=== PATIENT | male | born 1940 | race Caucasian/White ===

== ENCOUNTER 2019-06-11 05:30 | Observation (INO) ==
[2019-06-11] MEDS ORDERED: Ipratropium/Albuterol Neb 3 ML IH ONE (06:16)
[2019-06-11 06:18] LABS: Basophils # 0.1 K/mcL (0.0-0.2); Basophils % 0.6 %; Eosinophils # 0.6 K/mcL (0.0-0.6); Eosinophils % 5.2 %; Hematocrit 43.6 % (37.5-50.1); Hemoglobin 14.3 g/dL (12.9-16.9); Immature Granulocytes % 0.4 % (0-4); Lymphocytes # 1.7 K/mcL (0.6-4.6); Lymphocytes % 15.2 %; Mean Corpuscular HGB Conc 32.8 g/dL (31.6-35.5); Mean Corpuscular Hemoglobin 31.9 pg (28.0-33.3); Mean Corpuscular Volume 97.3 fL (83.0-100.0); Mean Platelet Volume 9.8 fL (9.4-12.4); Monocytes # 0.9 K/mcL (0.0-1.3); Monocytes % 8.5 %; Neutrophils # 7.7 K/mcL (1.6-8.9); Platelet Count 237 K/mcL (140-400); Red Blood Count 4.48 M/mcL (4.19-5.50); Red Cell Distribution Width 14.7 % (11.5-14.5); Segmented Neutrophils % 70.1 %; White Blood Count 11.1 K/mcL (4.3-11.1)
--- NOTE | 2019-06-11 06:18 | Emergency Department Note ---
Disposition Clinical Impression: Hypoxia, Elevated brain natriuretic peptide (BNP) level Community acquired pneumonia Qualifiers: Laterality: right Lung location: upper lobe of lung Qualified Code(s): J18.1 - Lobar pneumonia, unspecified organism Disposition: Admitted As Inpatient Condition: Good Time of Disposition: 07:13 SOB HPI - General Chief Complaint: ED Shortness of Breath/Dyspnea Stated Complaint: "think I have pneumonia" Time Seen by Provider: 06/11/19 06:03 Source: patient Limitations: no limitations - History of Present Illness 78-year-old male with history of COPD presents with cough and shortness breath for 3 weeks. Pt stated he coughed some yellowish mucus. Patient stated he even could not tolerate walking a few minutes . Patient tried Mucinex without improvement. No chills and a fever. Patient is not on home oxygen. Patient quit smoking 14 years ago. no recent hospitalization. Pt Subjective Complaint: shortness of breath Onset (ago): week(s) (3) - Related Data Home Medications Medication Instructions Recorded Confirmed Amlodipine Besylate/Benazepril 1 each PO DAILY 03/16/16 06/11/19 [Lotrel 10-20 mg Capsule] Lisinopril [Zestril] 40 mg PO DAILY 03/16/16 06/11/19 raNITIdine HCl [Zantac] 150 mg PO BID 03/16/16 06/11/19 Allopurinol [Zyloprim 100 MG] 100 mg PO DAILY 06/11/19 06/11/19 Carvedilol [Coreg] 25 mg PO BID 06/11/19 06/11/19 Allergies Allergy/AdvReac Type Severity Reaction Status Date / Time hydrocodone Allergy Hallucinati Verified 06/11/19 05:40 ng Constitutional: Denies: fever Eyes: Denies: eye pain ENT ED: Denies: ear pain Cardiovascular: Denies: chest pain Respiratory: Reports: cough, dyspnea, sputum production Gastrointestinal: Denies: abdominal pain Genitourinary: Denies: urgency Musculoskeletal: Denies: back pain Integumentary: Denies: rash Neurological: Denies: headache Psychiatric: Denies: anxiety Endocrine: Denies: fatigue Hematological/Lymphatic: Denies: easy bleeding Allergic/Immunologic: Denies: facial swelling Past Medical History - Past Medical History Medical history: Reports: GERD, hyperlipidemia, hypertension Psychiatric history: Reports: no psych history - Social History Smoking Status: Former smoker Smokeless Tobacco Status: No Alcohol use: Reports: none Drug use: Reports: none Physical Exam - General Limitations: no limitations General appearance: alert - Head Head exam: atraumatic - Eye Eye exam: Present: normal appearance - ENT ENT exam: normal exam - Neck Neck exam: Present: normal inspection - Chest Chest inspection: Present: normal inspection - Respiratory Respiratory exam: Present: wheezes (right lower lobe wheezing). Absent: respiratory distress - Cardiovascular Cardiovascular exam: Present: regular rate - Abdominal Exam Abdominal exam: Present: soft, Non-Tender - Extremities Exam Extremities exam: Present: normal inspection, full ROM. Absent: tenderness - Back Exam Back exam: Present: normal inspection, full ROM. Absent: tenderness - Neurological Exam Neurological exam: Present: alert, oriented X3 - Psychiatric Psychiatric exam: Present: normal affect - Skin Skin exam: Present: warm, intact Course Vital Signs Temperature 98.6 F 06/11/19 05:34 Pulse Rate 66 06/11/19 05:34 Respiratory Rate 24 06/11/19 05:34 Blood Pressure 165/102 06/11/19 05:34 O2 Sat by Pulse Oximetry 87 06/11/19 05:34 Temperature 98.6 F 06/11/19 05:34 Pulse Rate 66 06/11/19 09:14 Respiratory Rate 23 06/11/19 09:14 Blood Pressure 140/67 06/11/19 09:14 O2 Sat by Pulse Oximetry 92 06/11/19 09:14 Oxygen Delivery Oxygen Delivery Nasal Cannula Shortness of Breath/Dyspnea - [facility] Narrative Medical decision making narrative: 78-year-old male with a history of COPD presents with productive cough and shortness breath. He weeks. At no improvement with Mucinex. No chills and a fever. Patient's O2 sat was 87 in room air. Patient is not on home oxygen. No recently hospitalized. Physical exam afebrile, O2 sat 92 with 2 L oxygen, no breast distress, wheezing in right lower lobe, bilateral ankles mild edema. Chest x-ray indicated right upper lobe pneumonia. Negative troponin. BnP >1400. Impression community acquired pneumonia and hypoxia and elevated BNP. Patient will be admitted to hospital. Blood culture collected, antibiotics started in ER. Dr. Mario has seen the patient and agrees the above plan. Pt is given one dose of Lasix. Spoke with hospitalist Dr. Akins. Pt is accepted. - Lab Data Lab results reviewed: Yes I reviewed the patient's lab results. Result diagrams: 06/11/19 05:55 06/11/19 05:55 Lab Results 06/11/19 06/11/19 06/11/19 Range/Units 05:55 05:55 05:55 WBC 11.1 (4.3-11.1) K/mcL RBC 4.48 (4.19-5.50) M/mcL Hgb 14.3 (12.9-16.9) g/dL Hct 43.6 (37.5-50.1) % MCV 97.3 (83.0-100.0) fL MCH 31.9 (28.0-33.3) pg MCHC 32.8 (31.6-35.5) g/dL RDW 14.7 H (11.5-14.5) % Plt Count 237 (140-400) K/mcL MPV 9.8 (9.4-12.4) fL Immature Gran % 0.4 (0-4) % Seg Neutrophils % 70.1 % Lymphocytes % 15.2 % Monocytes % 8.5 % Eosinophils % 5.2 % Basophils % 0.6 % Neutrophils # 7.7 (1.6-8.9) K/mcL Lymphocytes # 1.7 (0.6-4.6) K/mcL Monocytes # 0.9 (0.0-1.3) K/mcL Eosinophils # 0.6 (0.0-0.6) K/mcL Basophils # 0.1 (0.0-0.2) K/mcL Sodium 140 (136-145) mEq/L Potassium 3.7 (3.5-5.1) mEq/L Chloride 105 (98-107) mEq/L Carbon Dioxide 24 (23-29) mEq/L BUN 16 (8-23) mg/dL Creatinine 1.20 (0.70-1.30) mg/dL Est GFR ( Amer) > 60 (> 60) Est GFR (Non-Af Amer) 59 L (> 60) BUN/Creatinine Ratio 13 (6-26) Glucose 129 H (70-105) mg/dL Calculated Osmolality 293 (280-300) Lactic Acid (0.5-2.2) mmol/L Calcium 9.2 (8.6-10.3) mg/dL Total Bilirubin 0.9 (0.3-1.0) mg/dL AST 13 (13-39) Units/L ALT 14 (7-52) Units/L Alkaline Phosphatase 61 (34-104) Units/L Troponin I 0.03 (< 0.04) ng/mL B-Natriuretic Peptide 1450 H (Less than 100) pg/mL Serum Total Protein 6.9 (6.4-8.9) g/dL Albumin 4.3 (3.5-5.7) g/dL Globulin 2.6 (2.4-3.5) g/dL Albumin/Globulin Ratio 1.7 (1.1-2.2) 06/11/19 Range/Units 06:58 WBC (4.3-11.1) K/mcL RBC (4.19-5.50) M/mcL Hgb (12.9-16.9) g/dL Hct (37.5-50.1) % MCV (83.0-100.0) fL MCH (28.0-33.3) pg MCHC (31.6-35.5) g/dL RDW (11.5-14.5) % Plt Count (140-400) K/mcL MPV (9.4-12.4) fL Immature Gran % (0-4) % Seg Neutrophils % % Lymphocytes % % Monocytes % % Eosinophils % % Basophils % % Neutrophils # (1.6-8.9) K/mcL Lymphocytes # (0.6-4.6) K/mcL Monocytes # (0.0-1.3) K/mcL Eosinophils # (0.0-0.6) K/mcL Basophils # (0.0-0.2) K/mcL Sodium (136-145) mEq/L Potassium (3.5-5.1) mEq/L Chloride (98-107) mEq/L Carbon Dioxide (23-29) mEq/L BUN (8-23) mg/dL Creatinine (0.70-1.30) mg/dL Est GFR ( Amer) (> 60) Est GFR (Non-Af Amer) (> 60) BUN/Creatinine Ratio (6-26) Glucose (70-105) mg/dL Calculated Osmolality (280-300) Lactic Acid 1.0 (0.5-2.2) mmol/L Calcium (8.6-10.3) mg/dL Total Bilirubin (0.3-1.0) mg/dL AST (13-39) Units/L ALT (7-52) Units/L Alkaline Phosphatase (34-104) Units/L Troponin I (< 0.04) ng/mL B-Natriuretic Peptide (Less than 100) pg/mL Serum Total Protein (6.4-8.9) g/dL Albumin (3.5-5.7) g/dL Globulin (2.4-3.5) g/dL Albumin/Globulin Ratio (1.1-2.2) - Radiology Data Radiology results reviewed: Yes I reviewed the patient's radiology results. COMPARISON: Portable chest, 03/06/2012 HISTORY: ORDERING SYSTEM PROVIDED HISTORY: chest pain Dyspnea and shortness of breath for the past 2-3 weeks. Acute symptoms, initial evaluation. Also with chest pain. FINDINGS: The heart appears enlarged. Atherosclerotic aortic calcifications noted. Bibasilar atelectasis identified. There is hazy airspace disease in the mid right lung raising concern for pneumonia. There may be a small right pleural effusion. No evidence of pneumothorax on either side. There appears to be cervical fusion hardware at the upper edge of the field of view. XR/XR chest 2V IMPRESSION: Findings concerning for right upper lobe pneumonia. Follow-up chest radiographs recommended to ensure resolution. D/ / Juwan Aranda MD / Juwan Aranda MD Interpreting Provider: Juwan Aranda MD
[2019-06-11 06:40] LABS: Alanine Aminotransferase 14 Units/L (7-52); Albumin 4.3 g/dL (3.5-5.7); Albumin/Globulin Ratio 1.7 (1.1-2.2); Alkaline Phosphatase 61 Units/L (34-104); Aspartate Amino Transferase 13 Units/L (13-39); BUN/Creatinine Ratio 13 (6-26); Bilirubin,Total 0.9 mg/dL (0.3-1.0); Blood Urea Nitrogen 16 mg/dL (8-23); Calcium 9.2 mg/dL (8.6-10.3); Carbon Dioxide 24 mEq/L (23-29); Chloride 105 mEq/L (98-107); Globulin 2.6 g/dL (2.4-3.5); Glucose 129 mg/dL (70-105); Osmolality,Calculated 293 (280-300); Potassium 3.7 mEq/L (3.5-5.1); Sodium 140 mEq/L (136-145); Total Protein 6.9 g/dL (6.4-8.9); Troponin I 0.03 ng/mL (< 0.04); eGFR For African Americans > 60 (> 60); eGFR For Non-African Americans 59 (> 60)
--- NOTE | 2019-06-11 06:48 | Electrocardiograph Report ---
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
[2019-06-11] MEDS ORDERED: Azithromycin 500 MG in D5% in Water 250 ML IVPB ONE (07:03)
[2019-06-11] MEDS ORDERED: cefTRIAXone 1,000 MG in 0.9 % Sodium Chloride Mini Bag 100 ML IVPB ONE (07:03)
--- NOTE | 2019-06-11 07:22 | Emergency Department Note ---
Disposition Clinical Impression: Hypoxia, Elevated brain natriuretic peptide (BNP) level Community acquired pneumonia Qualifiers: Laterality: right Lung location: upper lobe of lung Qualified Code(s): J18.1 - Lobar pneumonia, unspecified organism Disposition: Admitted As Inpatient Condition: Good Time of Disposition: 09:00 General Adult HPI - General Chief complaint: ED Shortness of Breath/Dyspnea Stated complaint: "think I have pneumonia" Time Seen by Provider: 06/11/19 06:03 Source: patient Limitations: no limitations Nursing Notes Reviewed: Yes Vital Signs Reviewed: Yes - History of Present Illness Pain Scale: 0 - Related Data Home Medications Medication Instructions Recorded Confirmed Amlodipine Besylate/Benazepril 1 each PO DAILY 03/16/16 06/11/19 [Lotrel 10-20 mg Capsule] Lisinopril [Zestril] 40 mg PO DAILY 03/16/16 06/11/19 raNITIdine HCl [Zantac] 150 mg PO BID 03/16/16 06/11/19 Allopurinol [Zyloprim 100 MG] 100 mg PO DAILY 06/11/19 06/11/19 Carvedilol [Coreg] 25 mg PO BID 06/11/19 06/11/19 Allergies Allergy/AdvReac Type Severity Reaction Status Date / Time hydrocodone Allergy Hallucinati Verified 06/11/19 05:40 ng Constitutional: Denies: fever Eyes: Denies: eye pain ENT ED: Denies: ear pain Cardiovascular: Denies: chest pain Respiratory: Reports: cough, dyspnea, sputum production Gastrointestinal: Denies: abdominal pain Genitourinary: Denies: urgency Musculoskeletal: Denies: back pain Integumentary: Denies: rash Neurological: Denies: headache Psychiatric: Denies: anxiety Endocrine: Denies: fatigue Hematological/Lymphatic: Denies: easy bleeding Allergic/Immunologic: Denies: facial swelling Past Medical History - Past Medical History Medical history: Reports: GERD, hyperlipidemia, hypertension Psychiatric history: Reports: no psych history - Social History Smoking Status: Former smoker Smokeless Tobacco Status: No Alcohol use: Reports: none Drug use: Reports: none Physical Exam - General Limitations: no limitations General appearance: alert Course Vital Signs Temperature 98.6 F 06/11/19 05:34 Pulse Rate 66 06/11/19 05:34 Respiratory Rate 24 06/11/19 05:34 Blood Pressure 165/102 06/11/19 05:34 O2 Sat by Pulse Oximetry 87 06/11/19 05:34 Temperature 98.6 F 06/11/19 05:34 Pulse Rate 66 06/11/19 09:14 Respiratory Rate 23 06/11/19 09:14 Blood Pressure 140/67 06/11/19 09:14 O2 Sat by Pulse Oximetry 92 06/11/19 09:14 Oxygen Delivery Oxygen Delivery Nasal Cannula Medical Decision Making - MDM Narrative Medical decision making narrative: Chest X-Ray 06/11/19 06:03 IMPRESSION: Findings concerning for right upper lobe pneumonia. Follow-up chest radiographs recommended to ensure resolution. D/ / Juwan Aranda MD / Juwan Aranda MD Interpreting Provider: Juwan Aranda MD - Lab Data Result diagrams: 06/11/19 05:55 06/11/19 05:55 Lab Results 06/11/19 06/11/19 06/11/19 Range/Units 05:55 05:55 05:55 WBC 11.1 (4.3-11.1) K/mcL RBC 4.48 (4.19-5.50) M/mcL Hgb 14.3 (12.9-16.9) g/dL Hct 43.6 (37.5-50.1) % MCV 97.3 (83.0-100.0) fL MCH 31.9 (28.0-33.3) pg MCHC 32.8 (31.6-35.5) g/dL RDW 14.7 H (11.5-14.5) % Plt Count 237 (140-400) K/mcL MPV 9.8 (9.4-12.4) fL Immature Gran % 0.4 (0-4) % Seg Neutrophils % 70.1 % Lymphocytes % 15.2 % Monocytes % 8.5 % Eosinophils % 5.2 % Basophils % 0.6 % Neutrophils # 7.7 (1.6-8.9) K/mcL Lymphocytes # 1.7 (0.6-4.6) K/mcL Monocytes # 0.9 (0.0-1.3) K/mcL Eosinophils # 0.6 (0.0-0.6) K/mcL Basophils # 0.1 (0.0-0.2) K/mcL Sodium 140 (136-145) mEq/L Potassium 3.7 (3.5-5.1) mEq/L Chloride 105 (98-107) mEq/L Carbon Dioxide 24 (23-29) mEq/L BUN 16 (8-23) mg/dL Creatinine 1.20 (0.70-1.30) mg/dL Est GFR ( Amer) > 60 (> 60) Est GFR (Non-Af Amer) 59 L (> 60) BUN/Creatinine Ratio 13 (6-26) Glucose 129 H (70-105) mg/dL Calculated Osmolality 293 (280-300) Lactic Acid (0.5-2.2) mmol/L Calcium 9.2 (8.6-10.3) mg/dL Total Bilirubin 0.9 (0.3-1.0) mg/dL AST 13 (13-39) Units/L ALT 14 (7-52) Units/L Alkaline Phosphatase 61 (34-104) Units/L Troponin I 0.03 (< 0.04) ng/mL B-Natriuretic Peptide 1450 H (Less than 100) pg/mL Serum Total Protein 6.9 (6.4-8.9) g/dL Albumin 4.3 (3.5-5.7) g/dL Globulin 2.6 (2.4-3.5) g/dL Albumin/Globulin Ratio 1.7 (1.1-2.2) 06/11/19 Range/Units 06:58 WBC (4.3-11.1) K/mcL RBC (4.19-5.50) M/mcL Hgb (12.9-16.9) g/dL Hct (37.5-50.1) % MCV (83.0-100.0) fL MCH (28.0-33.3) pg MCHC (31.6-35.5) g/dL RDW (11.5-14.5) % Plt Count (140-400) K/mcL MPV (9.4-12.4) fL Immature Gran % (0-4) % Seg Neutrophils % % Lymphocytes % % Monocytes % % Eosinophils % % Basophils % % Neutrophils # (1.6-8.9) K/mcL Lymphocytes # (0.6-4.6) K/mcL Monocytes # (0.0-1.3) K/mcL Eosinophils # (0.0-0.6) K/mcL Basophils # (0.0-0.2) K/mcL Sodium (136-145) mEq/L Potassium (3.5-5.1) mEq/L Chloride (98-107) mEq/L Carbon Dioxide (23-29) mEq/L BUN (8-23) mg/dL Creatinine (0.70-1.30) mg/dL Est GFR ( Amer) (> 60) Est GFR (Non-Af Amer) (> 60) BUN/Creatinine Ratio (6-26) Glucose (70-105) mg/dL Calculated Osmolality (280-300) Lactic Acid 1.0 (0.5-2.2) mmol/L Calcium (8.6-10.3) mg/dL Total Bilirubin (0.3-1.0) mg/dL AST (13-39) Units/L ALT (7-52) Units/L Alkaline Phosphatase (34-104) Units/L Troponin I (< 0.04) ng/mL B-Natriuretic Peptide (Less than 100) pg/mL Serum Total Protein (6.4-8.9) g/dL Albumin (3.5-5.7) g/dL Globulin (2.4-3.5) g/dL Albumin/Globulin Ratio (1.1-2.2) Attestation Statement - Attestation Attestation: This documentation is done with the assistance of Dragon dictation. Despite efforts made to ensure accuracy, there may be inaccuracies in perinatal technician or spelling and typographical errors. I have personally performed a face to face evaluation on this patient. I have reviewed and agree with the care plan. History and Exam by me shows: Patient seen and evaluated this morning by the physician's assistant sales manager, agree with her evaluation and management plan, patient comes in today with a history of COPD quit smoking some time ago having cough for 3 weeks does have pneumonia here today we will start on antibiotics and then admit. He is in agreement with plan.
[2019-06-11] MEDS ORDERED: Furosemide 20 MG/2 ML VIAL IVP ONE (08:28)
--- NOTE | 2019-06-11 10:42 | Internal Med History&Physical ---
Date of Encounter: 06/11/19 Time of Encounter: 10:40 Internal Medicine - H&P: HPI History of present illness: Mr. Ratliff is a 78 year old male with history of COPD, aortic aneurysm status post repair, presented to ED for three week history of worsening shortness of breath. It is associated with coughing with yellowish sputum. He denies chest pain, fevers/chills, n/v, diarrhea constipation. He is having lower extremity edema worse than usual. He cannot comment if he has orthopnea because he never lays flat because of chronic neck problems. In the ED he had a chest x-ray showing bibasilar atelectasis and right upper lobe pneumonia. He was afebrile with normal white count. He had an initial troponin that was 0.03 and a BNP was 1,450. Past Med Surg Social Fam HX - Past Medical History Medical history: GERD, hyperlipidemia, hypertension Additional medical history: gout Psychiatric history: no psych history - Past Surgical History Additional surgical history: cervical surgery. thoracic back surgery. aortic aneursym repair. partial colectomy. colostomy/ileostomy-reversed. abd hernia repair - Social History Smoking Status: Former smoker Smokeless Tobacco Status: No Alcohol use: none Drug use: none - Family History Mother Living Status: Hx Family Cardiac Disorders: Yes (heart attach) Father Living Status: Hx Family Cardiac Disorders: Yes (CHF) Internal Medicine - H&P: Meds Amlodipine Besylate/Benazepril [Lotrel 10-20 mg Capsule] 1 each PO DAILY 03/16/16 [History] Lisinopril [Zestril] 40 mg PO DAILY 03/16/16 [History] raNITIdine HCl [Zantac] 150 mg PO BID 03/16/16 [History] Allopurinol [Zyloprim 100 MG] 100 mg PO DAILY 06/11/19 [History] Carvedilol [Coreg] 25 mg PO BID 06/11/19 [History] Allergy/AdvReac Type Severity Reaction Status Date / Time hydrocodone Allergy Hallucinati Verified 06/11/19 05:40 ng All Systems PM: A 10-system review of systems was performed and is negative for pertinent findings except as documented above in the HPI. - Constitutional Constitutional: no chills, no fever(s), no night sweats - EENT Eyes: no change in vision, no discharge, no pain, no photophobia Ears: no ear discharge, no ear pain, no tinnitus Nose, mouth and throat: no dysphagia, no nasal discharge, no neck pain, no sore throat - Cardiovascular Cardiovascular ROS IM: edema, no chest pain, no diaphoresis, no dyspnea, no lightheadedness, no palpitations, no syncope - Respiratory Respiratory: dyspnea on exertion, excessive phlegm production, no cough, no dyspnea, no wheezing - Gastrointestinal Gastrointestinal: no abdominal pain, no diarrhea, no hematemesis, no hematochezia, no melena, no nausea, no vomiting - Musculoskeletal Musculoskeletal ROS IM: no numbness, no tingling - Integumentary Integumentary IM: no rash, no unusual bruising - Neurological Neurological ROS: no confusion, no convulsions, no focal weakness, no numbness, no tingling, no tremor(s) - Hematologic/Lymphatic Hematologic/Lymphatic: no easy bruising - Constitutional Vitals: Temp Pulse Resp BP Pulse Ox 98.6 F 66 23 140/67 92 06/11/19 05:34 06/11/19 09:14 06/11/19 09:14 06/11/19 09:14 06/11/19 09:14 General appearance: Present: A&O X 3 Exam: . - Head Head exam: Present: atraumatic, normocephalic - Eye Eye exam: Present: PERRL, conjuntiva pink, sclera anicteric Pupils: Present: PERRL - Neck Neck exam general surgery: Present: supple, trachea midline. Absent: lymphadenopathy - Respiratory Respiratory exam: Present: decreased breath sounds, rales. Absent: accessory muscle use, rhonchi, wheezes - Cardiovascular Cardiovascular exam: Present: RRR, +S1, +S2. Absent: diastolic murmur, gallop, rubs, systolic murmur - GI/Abdominal GI/Abdominal exam: Present: normal bowel sounds, soft, no peritoneal signs. Absent: distended, tenderness - Extremities Exam Extremities exam: Present: pedal edema, warm, radial pulses palpable and symmetrical. Absent: calf tenderness, cyanotic - Neurological Exam Neurological exam: Present: CN II-XII intact, oriented X3, no focal deficits. Absent: pronater drift, facial droop, speech deficit - Skin Skin exam: Present: dry, intact Internal Med - H&P Results - Labs CBC & Chem 7: 06/11/19 05:55 06/11/19 05:55 Labs: Short CBC 06/11/19 Range/Units 05:55 WBC 11.1 (4.3-11.1) K/mcL Hgb 14.3 (12.9-16.9) g/dL Hct 43.6 (37.5-50.1) % Plt Count 237 (140-400) K/mcL Neutrophils # 7.7 (1.6-8.9) K/mcL BMP 06/11/19 05:55 Sodium 140 Potassium 3.7 Chloride 105 Carbon Dioxide 24 BUN 16 Creatinine 1.20 Glucose 129 H Calcium 9.2 Cardiac Enzymes 06/11/19 Range/Units 05:55 Troponin I 0.03 (< 0.04) ng/mL Liver Function 06/11/19 Range/Units 05:55 Total Bilirubin 0.9 (0.3-1.0) mg/dL AST 13 (13-39) Units/L ALT 14 (7-52) Units/L Alkaline Phosphatase 61 (34-104) Units/L Albumin 4.3 (3.5-5.7) g/dL - Impressions ITS Impressions Chest X-Ray 06/11/19 06:03 IMPRESSION: Findings concerning for right upper lobe pneumonia. Follow-up chest radiographs recommended to ensure resolution. D/ / Juwan Aranda MD / Juwan Aranda MD Interpreting Provider: Juwan Aranda MD - Assessment and Plan (1) Acute respiratory failure with hypoxia Current Visit: Yes Status: Acute Assessment and plan: Secondary to community acquired pneumonia. Patient also has mild fluid over load. Required 2L NC oxygen in ED. Currently weaned back down to RA. - Continue Rocephin/Azithro - Duo Nebs scheduled and prn - No indication for steroids - Wean O2 as tolerated. - 2D echocardiogram - I.S. - Re-evaluation if patient will require IV Lasix. (2) Community acquired pneumonia Current Visit: Yes Status: Acute Assessment and plan: Patient does not meet sepsis criteria. LA within normal limits VSS Continue Rocephin/Azithro Qualifiers: Laterality: right Lung location: upper lobe of lung Qualified Code(s): J18.1 - Lobar pneumonia, unspecified organism (3) Elevated brain natriuretic peptide (BNP) level Current Visit: Yes Status: Acute (4) Hypertension Current Visit: Yes Status: Acute Assessment and plan: Resume home medications Qualifiers: Hypertension type: essential hypertension Qualified Code(s): I10 - Essential (primary) hypertension (5) DVT prophylaxis Current Visit: Yes Status: Acute Assessment and plan: Heparin SQ - Time Spent With Patient Total time spent is greater than 50% in coordination of care (as documented) at patient's floor/unit and/or counseling patient:
[2019-06-11] MEDS ORDERED: Naloxone 0.4 MG/ML INJ IVP PRN (10:44)
[2019-06-11] MEDS ORDERED: Nitroglycerin 0.4 MG TAB.SUBL SL PRN (10:46)
[2019-06-11] MEDS: Ipratropium/Albuterol Neb 3 ML IH SCH ×4 (11:53→23:49)
[2019-06-11 13:48] LABS: Adenovirus Not Detected (Not Detect); Bordetella Pertussis Not Detected (Not Detect); Chlamydophila pneumoniae Not Detected (Not Detect); Coronavirus 229E Not Detected (Not Detect); Coronavirus HKU1 Not Detected (Not Detect); Coronavirus NL63 Not Detected (Not Detect); Coronavirus OC43 Not Detected (Not Detect); Human Metapneumovirus Not Detected (Not Detect); Human Rhinovirus/Enterovirus Not Detected (Not Detect); Influenza A Subtype 2009 H1 Not Detected (Not Detect); Influenza A Untypeable Not Detected (Not Detect); Influenza B Not Detected (Not Detect); Mycoplasma pneumoniae Not Detected (Not Detect); Parainfluenza Virus 1 Not Detected (Not Detect); Parainfluenza Virus 2 Not Detected (Not Detect); Parainfluenza Virus 3 Not Detected (Not Detect); Parainfluenza Virus 4 Not Detected (Not Detect); Respiratory Syncytial Virus Not Detected (Not Detect)
[2019-06-11] MEDS: Furosemide 40 MG/4 ML VIAL IVP SCH ×2 (15:51→20:57)
[2019-06-11] MEDS: *HR* Heparin 5,000 UNIT/ML VIAL SQ SCH (17:06)
[2019-06-11] MEDS: predniSONE 20 MG TABLET PO SCH (17:39)
[2019-06-11] MEDS: Famotidine 20 MG TABLET PO SCH (19:39)
[2019-06-12] MEDS: Ipratropium/Albuterol Neb 3 ML IH SCH ×3 (04:22→11:16)
[2019-06-12] MEDS: *HR* Heparin 5,000 UNIT/ML VIAL SQ SCH (04:56)
[2019-06-12 05:16] LABS: BUN/Creatinine Ratio 13 (6-26); Blood Urea Nitrogen 17 mg/dL (8-23); Calcium 9.3 mg/dL (8.6-10.3); Carbon Dioxide 27 mEq/L (23-29); Chloride 104 mEq/L (98-107); Glucose 145 mg/dL (70-105); Osmolality,Calculated 296 (280-300); Potassium 3.5 mEq/L (3.5-5.1); Sodium 141 mEq/L (136-145); eGFR For African Americans > 60 (> 60); eGFR For Non-African Americans 56 (> 60)
[2019-06-12] MEDS ORDERED: NON-FORMULARY MEDICATION 1 EACH EACH (Amlodipine Besylate/Benazepril [Lotrel 10-20 Mg Caps PO SCH (09:00)
[2019-06-12] MEDS ORDERED: Lisinopril 20 MG TABLET PO SCH ×2 (09:00)
[2019-06-12] MEDS ORDERED: cefTRIAXone 1,000 MG in Water for inj. (sterile) 10 ML IVP SCH (09:00)
[2019-06-12] MEDS ORDERED: Azithromycin 500 MG in D5% in Water 250 ML IVPB SCH (09:00)
[2019-06-12] MEDS ORDERED: amLODIPine 5 MG TABLET PO SCH (09:00)
[2019-06-12] MEDS: predniSONE 20 MG TABLET PO SCH (10:02)
[2019-06-12] MEDS: Furosemide 40 MG/4 ML VIAL IVP SCH (10:04)
[2019-06-12] MEDS: Famotidine 20 MG TABLET PO SCH (10:05)
[2019-06-12 11:41] VITALS: BP 123/66
--- NOTE | 2019-06-12 13:41 | Electrocardiograph Report ---
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
--- NOTE | 2019-06-12 14:17 | Discharge Summary ---
- NOTES TO OUTPATIENT PROVIDER Notes to Outpatient Provider: f/u with PCP in one week. Please wear O2 at 2 lit continuously. Orders not resulted at time of discharge: Pending orders 06/11/19 05:55 Culture,Blood [BC] Stat 06/11/19 10:46 Mycoplasma pneumoniae IgG IgM Routine Date of Encounter: 06/12/19 Time of Encounter: 14:10 - Discharge Diagnosis (1) Community acquired pneumonia Priority: Primary Status: Acute Qualifiers: Laterality: right Lung location: upper lobe of lung Qualified Code(s): J18.1 - Lobar pneumonia, unspecified organism (2) COPD exacerbation Priority: Primary Status: Acute (3) Acute diastolic (congestive) heart failure Priority: Primary Status: Acute (4) Elevated brain natriuretic peptide (BNP) level Priority: Primary Status: Acute (5) Acute respiratory failure with hypoxia Priority: Primary Status: Acute (6) DVT prophylaxis Priority: Secondary Status: Acute (7) Hypertension Priority: Secondary Status: Acute Qualifiers: Hypertension type: essential hypertension Qualified Code(s): I10 - Essential (primary) hypertension Hospital course: Mr. Ratliff is a 78 year old male with history of COPD, aortic aneurysm status post repair, presented to ED for three week history of worsening shortness of breath. It is associated with coughing with yellowish sputum.He is having lower extremity edema worse than usual. In the ED he had a chest x-ray showing bibasilar atelectasis and right upper lobe pneumonia. He had an initial troponin that was 0.03 and a BNP was 1,450. 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 His serial troponin came back as negative. His respiratory viral panel came back as normal. His his sputum culture was negative. His urine streptococcus pneumonia and Legionella were negative. His blood culture grow any bacteria. Patient was also started on IV Lasix since he does have increased vascular congestion noticed on chest x-ray and elevated BNP consistent with the acute diastolic CHF exacerbation. His echocardiogram showed preserved LVEF. Today patient stated he is feeling much better and wanted to go home. He does needed 2 lit oxygen continuously, so will arrange for it before he goes home. - Time Spent with Patient Total time spent providing and/or coordinating discharge services: - Discharge Medications Prescriptions: New Cephalexin [Keflex] 500 mg PO BID #8 capsule Furosemide [Lasix] 20 mg PO DAILY #30 tablet predniSONE [PredniSONE] 40 mg PO DAILY #10 tablet Budesonide/Formoterol 160/4.5 [Symbicort 160/4.5] 2 puff IH BIDR #1 hfa.aer.ad Azithromycin [Zithromax] 250 mg PO DAILY #4 tablet Continued Amlodipine Besylate/Benazepril [Lotrel 10-20 mg Capsule] 1 each PO QAM Carvedilol [Coreg] 25 mg PO BID Allopurinol [Zyloprim 100 MG] 100 mg PO QAM raNITIdine HCl [Zantac] 150 mg PO BID Discontinued Lisinopril [Zestril] 40 mg PO QAM Home Medications: Amlodipine Besylate/Benazepril [Lotrel 10-20 mg Capsule] 1 each PO QAM 03/16/16 [History] Allopurinol [Zyloprim 100 MG] 100 mg PO QAM 06/11/19 [History] Carvedilol [Coreg] 25 mg PO BID 06/11/19 [History] raNITIdine HCl [Zantac] 150 mg PO BID 06/11/19 [History] Azithromycin [Zithromax] 250 mg PO DAILY #4 tablet 06/12/19 [Rx] Budesonide/Formoterol 160/4.5 [Symbicort 160/4.5] 2 puff IH BIDR #1 hfa.aer.ad 06/12/19 [Rx] Cephalexin [Keflex] 500 mg PO BID #8 capsule 06/12/19 [Rx] Furosemide [Lasix] 20 mg PO DAILY #30 tablet 06/12/19 [Rx] predniSONE [PredniSONE] 40 mg PO DAILY #10 tablet 06/12/19 [Rx] Allergies/Adverse Reactions: Allergy/AdvReac Type Severity Reaction Status Date / Time hydrocodone Allergy Hallucinati Verified 06/11/19 12:22 ng Date of admission: 06/11/19 09:15 Primary care physician: James Crabtree DO Consults: 06/12/19 09:39 Consult to Nurse Navigator [CONS] Routine Comment: PNEUMONIA - Constitutional Vitals: Temp Pulse Resp BP Pulse Ox 97.7 F 83 16 123/66 90 06/12/19 11:28 06/12/19 11:28 06/12/19 11:28 06/12/19 11:28 06/12/19 11:28 General appearance: Present: A&O X 3 Exam: Gen: Alert, awake, Oriented to time,place and person Chest: Diminished breath sounds B/L, Moderate wheezing, No crackles, No rales Heart: S1S2+ RRR No murmurs Abd: Soft, NT, BS +, No organomegaly Ext: trace edema, pulses are palpable, No calf tenderness Neuro : No acute focal neuro deficits noticed Skin: No rash. - Patient Status Disposition: Home, Self-Care Condition: Good Overall status at discharge: patient is back to baseline - Discharge Instructions Follow Up With: James Crabtree DO [Primary Care Provider] - (Appt has been requested. ) - Diet and Activity Activity: increase activity as tolerated, wear oxygen at all times Diet: low salt diet
== END 2019-06-12 15:16 | disposition home or self-care (01) ==
LOC: EMEROOARM 05:30 → 3BNU 05:30 → SUATTDRO 09:15 → 3BNU 10:23
PROVIDERS: ADMIT Student in an Organized Health Care Education/Training Program; ATTEND Family Medicine

== ENCOUNTER 2020-10-16 15:37 | Inpatient (IN) ==
[2020-10-16 16:15] LABS: Basophils % 0.2 %; Eosinophils # 0.1 K/mcL (0.0-0.6); Eosinophils % 0.3 %; Hematocrit 39.7 % (37.5-50.1); Hemoglobin 12.8 g/dL (12.9-16.9); Immature Granulocytes % 0.5 % (0-4); Lymphocytes # 1.2 K/mcL (0.6-4.6); Lymphocytes % 8.1 %; Mean Corpuscular HGB Conc 32.2 g/dL (31.6-35.5); Mean Corpuscular Hemoglobin 31.4 pg (28.0-33.3); Mean Corpuscular Volume 97.3 fL (83.0-100.0); Mean Platelet Volume 10.7 fL (9.4-12.4); Monocytes # 0.9 K/mcL (0.0-1.3); Monocytes % 5.7 %; Neutrophils # 12.6 K/mcL (1.6-8.9); Platelet Count 190 K/mcL (140-400); Red Blood Count 4.08 M/mcL (4.19-5.50); Red Cell Distribution Width 14.2 % (11.5-14.5); Segmented Neutrophils % 85.2 %; White Blood Count 14.8 K/mcL (4.3-11.1)
[2020-10-16] MEDS ORDERED: Furosemide 20 MG/2 ML VIAL IVP ONE (17:02)
[2020-10-16] MEDS ORDERED: cefTRIAXone 1,000 MG in Water for inj. (sterile) 10 ML IVP ONE (17:04)
[2020-10-16] MEDS ORDERED: Azithromycin 500 MG in 0.9 % Sodium Chloride 250 ML IVPB ONE (17:05)
[2020-10-16 17:24] LABS: Alanine Aminotransferase 19 Units/L (7-52); Albumin 3.7 g/dL (3.5-5.7); Albumin/Globulin Ratio 1.5 (1.1-2.2); Alkaline Phosphatase 68 Units/L (34-104); Aspartate Amino Transferase 15 Units/L (13-39); BUN/Creatinine Ratio 21 (6-26); Bilirubin,Total 1.3 mg/dL (0.3-1.0); Blood Urea Nitrogen 28 mg/dL (8-23); Calcium 9.1 mg/dL (8.6-10.3); Carbon Dioxide 28 mEq/L (23-29); Chloride 101 mEq/L (98-107); Globulin 2.4 g/dL (2.4-3.5); Glucose 121 mg/dL (70-105); Osmolality,Calculated 291 (280-300); Potassium 4.9 mEq/L (3.5-5.1); Sodium 137 mEq/L (136-145); Total Protein 6.1 g/dL (6.4-8.9); Troponin I < 0.03 ng/mL (< 0.04); eGFR For African Americans > 60 (> 60); eGFR For Non-African Americans 52 (> 60)
[2020-10-16] MEDS ORDERED: Naloxone 0.4 MG/ML INJ IVP PRN (18:08)
[2020-10-16] MEDS ORDERED: Perflutren Lipid Microsphere 1.3 ML in 0.9 % Sodium Chloride 8.7 ML IVP PRN (18:11)
[2020-10-16] MEDS ORDERED: *HR* Dextrose 50 % in Water (Vial) 50 ML VIAL IVP PRN (21:07)
[2020-10-16] MEDS ORDERED: Dextrose Gel 15 GM/37.5 ML TUBE PO PRN ×2 (21:07)
[2020-10-16] MEDS ORDERED: D5% in Water 1,000 ML IVC PRN (21:07)
[2020-10-16] MEDS: Budesonide/Formoterol 160/4.5 1 PUFF INH IH SCH (21:46)
[2020-10-16 22:16] LABS: Estimated Average Glucose 134 mg/dl; Hemoglobin A1C 6.3 %
[2020-10-16] MEDS: carvediloL 25 MG TABLET PO SCH (22:33)
[2020-10-16] MEDS: Azithromycin 500 MG in D5% in Water 250 ML IVPB SCH (22:46)
[2020-10-17 01:58] LABS: Basophils % 0.2 %; Eosinophils % 0.3 %; Hematocrit 35.7 % (37.5-50.1); Hemoglobin 11.5 g/dL (12.9-16.9); Immature Granulocytes % 0.5 % (0-4); Lymphocytes % 8.9 %; Mean Corpuscular HGB Conc 32.2 g/dL (31.6-35.5); Mean Corpuscular Hemoglobin 31.4 pg (28.0-33.3); Mean Corpuscular Volume 97.5 fL (83.0-100.0); Mean Platelet Volume 10.9 fL (9.4-12.4); Monocytes # 0.8 K/mcL (0.0-1.3); Neutrophils # 9.2 K/mcL (1.6-8.9); Platelet Count 144 K/mcL (140-400); Red Blood Count 3.66 M/mcL (4.19-5.50); Red Cell Distribution Width 14.1 % (11.5-14.5); Segmented Neutrophils % 83.1 %
[2020-10-17 02:13] LABS: BUN/Creatinine Ratio 22 (6-26); Blood Urea Nitrogen 29 mg/dL (8-23); Calcium 8.2 mg/dL (8.6-10.3); Carbon Dioxide 30 mEq/L (23-29); Chloride 100 mEq/L (98-107); Glucose 153 mg/dL (70-105); Osmolality,Calculated 289 (280-300); Potassium 4.4 mEq/L (3.5-5.1); Sodium 135 mEq/L (136-145); eGFR For African Americans > 60 (> 60); eGFR For Non-African Americans 52 (> 60)
[2020-10-17 02:24] LABS: Alanine Aminotransferase 14 Units/L (7-52); Albumin 3.3 g/dL (3.5-5.7); Albumin/Globulin Ratio 1.6 (1.1-2.2); Alkaline Phosphatase 54 Units/L (34-104); Aspartate Amino Transferase 21 Units/L (13-39); BUN/Creatinine Ratio 23 (6-26); Bilirubin,Total 0.7 mg/dL (0.3-1.0); Blood Urea Nitrogen 30 mg/dL (8-23); Calcium 8.2 mg/dL (8.6-10.3); Carbon Dioxide 27 mEq/L (23-29); Chloride 102 mEq/L (98-107); Globulin 2.1 g/dL (2.4-3.5); Glucose 150 mg/dL (70-105); Osmolality,Calculated 287 (280-300); Potassium 5.1 mEq/L (3.5-5.1); Sodium 134 mEq/L (136-145); Total Protein 5.4 g/dL (6.4-8.9); eGFR For African Americans > 60 (> 60); eGFR For Non-African Americans 54 (> 60)
[2020-10-17] MEDS ORDERED: Furosemide 20 MG/2 ML VIAL IVP SCH ×2 (09:00)
[2020-10-17] MEDS: Ipratropium/Albuterol Neb 3 ML IH SCH ×3 (09:15→22:13)
[2020-10-17] MEDS: Budesonide/Formoterol 160/4.5 1 PUFF INH IH SCH ×2 (09:19→22:13)
[2020-10-17] MEDS: Insulin LISPRO 300 UNITS/3 ML VIAL SQ SCH ×4 (10:07→20:41)
[2020-10-17] MEDS: Calcium Gluconate 1gm/50mL 1 GM/50 ML BAG IVPB SCH ×2 (10:18→11:36)
[2020-10-17] MEDS: cloNIDine HCL 0.1 MG TABLET PO SCH ×2 (10:19→20:36)
[2020-10-17] MEDS: carvediloL 25 MG TABLET PO SCH ×2 (10:19→16:48)
[2020-10-17] MEDS: lisinopriL 20 MG TABLET PO SCH (10:19)
[2020-10-17] MEDS: allopurinoL 100 MG TABLET PO SCH (10:19)
[2020-10-17] MEDS: *HR* Rivaroxaban 10 MG TABLET PO SCH (10:19)
[2020-10-17] MEDS ORDERED: Nitroglycerin 0.4 MG TAB.SUBL SL PRN (10:44)
[2020-10-17 12:19] LABS: Adenovirus Not Detected (Not Detect); Bordetella Pertussis Not Detected (Not Detect); Chlamydophila pneumoniae Not Detected (Not Detect); Coronavirus 229E Not Detected (Not Detect); Coronavirus HKU1 Not Detected (Not Detect); Coronavirus NL63 Not Detected (Not Detect); Coronavirus OC43 Not Detected (Not Detect); Human Metapneumovirus Not Detected (Not Detect); Human Rhinovirus/Enterovirus Not Detected (Not Detect); Influenza A Subtype 2009 H1 Not Detected (Not Detect); Influenza B Not Detected (Not Detect); Mycoplasma pneumoniae Not Detected (Not Detect); Parainfluenza Virus 1 Not Detected (Not Detect); Parainfluenza Virus 2 Not Detected (Not Detect); Parainfluenza Virus 3 Not Detected (Not Detect); Parainfluenza Virus 4 Not Detected (Not Detect); Respiratory Syncytial Virus Not Detected (Not Detect); SARS-CoV-2 Not Detected (Not Detect)
[2020-10-17 12:25] LABS: INR 1.8; Prothrombin Time 20.3 Seconds (9.4-12.1)
[2020-10-17 12:27] LABS: Activated Partial Thrombo Time 33.1 Seconds (26.0-36.0)
[2020-10-17] MEDS ORDERED: Furosemide 20 MG/2 ML VIAL IVP ONE (14:00)
[2020-10-17] MEDS: cefTRIAXone 1,000 MG in Water for inj. (sterile) 10 ML IVP SCH (16:48)
[2020-10-17] MEDS: Furosemide 40 MG/4 ML VIAL IVP SCH (16:48)
[2020-10-17] MEDS ORDERED: carvediloL 25 MG TABLET PO SCH (17:00)
[2020-10-17] MEDS: Azithromycin 500 MG in D5% in Water 250 ML IVPB SCH (20:36)
[2020-10-18] MEDS: Ipratropium/Albuterol Neb 3 ML IH SCH ×4 (03:38→21:29)
[2020-10-18 04:25] LABS: Basophils % 0.4 %; Eosinophils # 0.2 K/mcL (0.0-0.6); Eosinophils % 1.7 %; Hematocrit 34.8 % (37.5-50.1); Hemoglobin 11.4 g/dL (12.9-16.9); Immature Granulocytes % 0.5 % (0-4); Lymphocytes # 1.3 K/mcL (0.6-4.6); Lymphocytes % 12.3 %; Mean Corpuscular HGB Conc 32.8 g/dL (31.6-35.5); Mean Corpuscular Hemoglobin 31.9 pg (28.0-33.3); Mean Corpuscular Volume 97.5 fL (83.0-100.0); Mean Platelet Volume 11.1 fL (9.4-12.4); Monocytes # 0.9 K/mcL (0.0-1.3); Monocytes % 7.8 %; Neutrophils # 8.4 K/mcL (1.6-8.9); Platelet Count 149 K/mcL (140-400); Red Blood Count 3.57 M/mcL (4.19-5.50); Segmented Neutrophils % 77.3 %; White Blood Count 10.9 K/mcL (4.3-11.1)
[2020-10-18 04:45] LABS: BUN/Creatinine Ratio 26 (6-26); Blood Urea Nitrogen 33 mg/dL (8-23); Calcium 8.4 mg/dL (8.6-10.3); Carbon Dioxide 31 mEq/L (23-29); Chloride 101 mEq/L (98-107); Glucose 97 mg/dL (70-105); Osmolality,Calculated 297 (280-300); Potassium 3.6 mEq/L (3.5-5.1); Sodium 140 mEq/L (136-145); eGFR For African Americans > 60 (> 60); eGFR For Non-African Americans 54 (> 60)
[2020-10-18] MEDS: Insulin LISPRO 300 UNITS/3 ML VIAL SQ SCH ×4 (07:25→20:03)
[2020-10-18] MEDS: carvediloL 25 MG TABLET PO SCH ×2 (07:28→17:15)
[2020-10-18] MEDS: Aspirin 81 MG TAB.CHEW PO SCH (07:28)
[2020-10-18] MEDS: allopurinoL 100 MG TABLET PO SCH (07:28)
[2020-10-18] MEDS: lisinopriL 20 MG TABLET PO SCH (07:28)
[2020-10-18] MEDS: *HR* Rivaroxaban 10 MG TABLET PO SCH (07:29)
[2020-10-18] MEDS: Furosemide 40 MG/4 ML VIAL IVP SCH ×2 (07:29→17:16)
[2020-10-18] MEDS: cloNIDine HCL 0.1 MG TABLET PO SCH ×2 (07:29→19:59)
[2020-10-18] MEDS: Calcium Gluconate 1gm/50mL 1 GM/50 ML BAG IVPB SCH ×2 (09:52→10:54)
[2020-10-18] MEDS: Budesonide/Formoterol 160/4.5 1 PUFF INH IH SCH ×2 (10:50→21:28)
[2020-10-18 11:27] LABS: Magnesium 1.7 mg/dL (1.6-2.6); Phosphorous 3.2 mg/dL (2.7-4.5)
[2020-10-18] MEDS: cefTRIAXone 1,000 MG in Water for inj. (sterile) 10 ML IVP SCH (17:16)
[2020-10-18] MEDS: Azithromycin 500 MG in D5% in Water 250 ML IVPB SCH (20:00)
[2020-10-19] MEDS: Ipratropium/Albuterol Neb 3 ML IH SCH ×4 (03:29→22:02)
[2020-10-19 08:47] LABS: Basophils # 0.1 K/mcL (0.0-0.2); Basophils % 0.4 %; Eosinophils # 0.3 K/mcL (0.0-0.6); Eosinophils % 2.4 %; Immature Granulocytes % 0.5 % (0-4); Lymphocytes # 1.6 K/mcL (0.6-4.6); Lymphocytes % 12.3 %; Mean Corpuscular HGB Conc 32.7 g/dL (31.6-35.5); Mean Corpuscular Hemoglobin 30.9 pg (28.0-33.3); Mean Corpuscular Volume 94.5 fL (83.0-100.0); Mean Platelet Volume 10.3 fL (9.4-12.4); Monocytes # 0.9 K/mcL (0.0-1.3); Monocytes % 7.3 %; Neutrophils # 9.9 K/mcL (1.6-8.9); Platelet Count 179 K/mcL (140-400); Red Blood Count 4.34 M/mcL (4.19-5.50); Red Cell Distribution Width 14.2 % (11.5-14.5); Segmented Neutrophils % 77.1 %; White Blood Count 12.8 K/mcL (4.3-11.1)
[2020-10-19 08:50] LABS: VBG Ionized Calcium 1.06 mmol/L (1.15-1.35)
[2020-10-19 09:05] LABS: Albumin 3.6 g/dL (3.5-5.7); Calcium 8.9 mg/dL (8.6-10.3); Magnesium 1.7 mg/dL (1.6-2.6); Phosphorous 3.2 mg/dL (2.7-4.5)
[2020-10-19 09:07] LABS: Hemoglobin 13.4 g/dL (12.9-16.9)
[2020-10-19] MEDS: Insulin LISPRO 300 UNITS/3 ML VIAL SQ SCH ×4 (09:32→21:15)
[2020-10-19] MEDS: Budesonide/Formoterol 160/4.5 1 PUFF INH IH SCH ×2 (09:41→22:02)
[2020-10-19] MEDS ORDERED: Nitroglycerin 1,000 MCG/10 ML VIAL IV ONE (10:07)
[2020-10-19] MEDS ORDERED: *HR* Heparin 10,000 UNIT/10 ML VIAL ONE (10:07)
[2020-10-19] MEDS ORDERED: 0.9 % Sodium Chloride 1,000 ML ONE (10:07)
[2020-10-19] MEDS ORDERED: Heparin 1,000 UNITS/500 mL 500 ML ONE (10:07)
[2020-10-19] MEDS ORDERED: ISOVUE-370 200 ML INFUS..BTL ONE (10:07)
[2020-10-19] MEDS ORDERED: *HR* Midazolam HCl 2 MG/2 ML VIAL ONE (10:20)
[2020-10-19] MEDS: Aspirin 81 MG TAB.CHEW PO SCH (12:03)
[2020-10-19] MEDS: allopurinoL 100 MG TABLET PO SCH (12:03)
[2020-10-19] MEDS: lisinopriL 20 MG TABLET PO SCH (12:03)
[2020-10-19] MEDS: carvediloL 25 MG TABLET PO SCH ×2 (12:03→17:27)
[2020-10-19] MEDS: cloNIDine HCL 0.1 MG TABLET PO SCH ×2 (12:03→20:13)
[2020-10-19] MEDS ORDERED: *HR* Heparin 5,000 UNIT/ML VIAL IVP PRN ×2 (14:52)
[2020-10-19] MEDS ORDERED: *HR* Heparin 5,000 UNIT/ML VIAL IVP ONE (14:52)
[2020-10-19] MEDS ORDERED: Heparin 25,000UNIT/250ML 1/2NS 25,000 UNIT/250 ML IV.SOLN IVC SCH (15:00)
[2020-10-19 16:01] LABS: Hematocrit 41.6 % (37.5-50.1); Hemoglobin 13.4 g/dL (12.9-16.9); Mean Corpuscular HGB Conc 32.2 g/dL (31.6-35.5); Mean Corpuscular Hemoglobin 30.9 pg (28.0-33.3); Mean Corpuscular Volume 95.9 fL (83.0-100.0); Mean Platelet Volume 10.3 fL (9.4-12.4); Platelet Count 169 K/mcL (140-400); Red Blood Count 4.34 M/mcL (4.19-5.50); Red Cell Distribution Width 14.2 % (11.5-14.5); White Blood Count 11.3 K/mcL (4.3-11.1)
[2020-10-19 16:13] LABS: INR 1.5; Prothrombin Time 16.6 Seconds (9.4-12.1)
[2020-10-19 16:20] LABS: Heparin anti-factor XA UFH 0.38 IU/mL (0.30-0.70)
[2020-10-19] MEDS ORDERED: *HR* Rivaroxaban 10 MG TABLET PO SCH (17:00)
[2020-10-19] MEDS: Furosemide 40 MG TABLET PO SCH (17:27)
[2020-10-19] MEDS: cefTRIAXone 1,000 MG in Water for inj. (sterile) 10 ML IVP SCH (17:27)
[2020-10-19] MEDS: Azithromycin 500 MG in D5% in Water 250 ML IVPB SCH (20:13)
[2020-10-20] MEDS: Furosemide 40 MG/4 ML VIAL IVP SCH (00:34)
[2020-10-20] MEDS: Ipratropium/Albuterol Neb 3 ML IH SCH ×4 (03:36→21:51)
[2020-10-20 06:20] LABS: Basophils % 0.4 %; Eosinophils # 0.2 K/mcL (0.0-0.6); Eosinophils % 2.4 %; Hemoglobin 11.9 g/dL (12.9-16.9); Immature Granulocytes % 0.5 % (0-4); Lymphocytes # 1.3 K/mcL (0.6-4.6); Lymphocytes % 13.1 %; Mean Corpuscular HGB Conc 33.1 g/dL (31.6-35.5); Mean Corpuscular Hemoglobin 31.4 pg (28.0-33.3); Mean Platelet Volume 10.4 fL (9.4-12.4); Monocytes # 0.7 K/mcL (0.0-1.3); Monocytes % 7.1 %; Neutrophils # 7.6 K/mcL (1.6-8.9); Platelet Count 150 K/mcL (140-400); Red Blood Count 3.79 M/mcL (4.19-5.50); Red Cell Distribution Width 14.4 % (11.5-14.5); Segmented Neutrophils % 76.5 %
[2020-10-20 06:36] LABS: Calcium 8.2 mg/dL (8.6-10.3); Magnesium 1.9 mg/dL (1.6-2.6); Phosphorous 2.7 mg/dL (2.7-4.5); Potassium 3.7 mEq/L (3.5-5.1)
[2020-10-20] MEDS: Insulin LISPRO 300 UNITS/3 ML VIAL SQ SCH ×2 (07:50→11:57)
[2020-10-20] MEDS: carvediloL 25 MG TABLET PO SCH ×2 (07:52→18:27)
[2020-10-20] MEDS: Aspirin 81 MG TAB.CHEW PO SCH (07:52)
[2020-10-20] MEDS: cloNIDine HCL 0.1 MG TABLET PO SCH ×2 (07:52→20:14)
[2020-10-20] MEDS: Furosemide 40 MG TABLET PO SCH ×2 (07:53→18:27)
[2020-10-20] MEDS: allopurinoL 100 MG TABLET PO SCH (07:53)
[2020-10-20] MEDS: lisinopriL 20 MG TABLET PO SCH (07:53)
[2020-10-20] MEDS: Budesonide/Formoterol 160/4.5 1 PUFF INH IH SCH ×2 (10:01→21:50)
[2020-10-20] MEDS: Heparin 25,000UNIT/250ML 1/2NS 25,000 UNIT/250 ML IV.SOLN IVC SCH (11:54)
[2020-10-20 12:24] LABS: Hematocrit 37.6 % (37.5-50.1); Hemoglobin 12.3 g/dL (12.9-16.9)
[2020-10-20] MEDS: cefTRIAXone 1,000 MG in Water for inj. (sterile) 10 ML IVP SCH (18:27)
[2020-10-20] MEDS ORDERED: Azithromycin 250 MG TABLET PO SCH (21:00)
[2020-10-21 01:36] LABS: Basophils % 0.4 %; Eosinophils # 0.3 K/mcL (0.0-0.6); Eosinophils % 3.2 %; Hematocrit 33.4 % (37.5-50.1); Immature Granulocytes % 0.4 % (0-4); Lymphocytes # 1.6 K/mcL (0.6-4.6); Lymphocytes % 17.4 %; Mean Corpuscular HGB Conc 32.9 g/dL (31.6-35.5); Mean Corpuscular Hemoglobin 31.6 pg (28.0-33.3); Mean Platelet Volume 10.6 fL (9.4-12.4); Monocytes # 0.7 K/mcL (0.0-1.3); Monocytes % 7.3 %; Neutrophils # 6.6 K/mcL (1.6-8.9); Platelet Count 150 K/mcL (140-400); Red Blood Count 3.48 M/mcL (4.19-5.50); Red Cell Distribution Width 14.1 % (11.5-14.5); Segmented Neutrophils % 71.3 %; White Blood Count 9.2 K/mcL (4.3-11.1)
[2020-10-21 01:53] LABS: BUN/Creatinine Ratio 23 (6-26); Blood Urea Nitrogen 32 mg/dL (8-23); Calcium 8.1 mg/dL (8.6-10.3); Carbon Dioxide 32 mEq/L (23-29); Chloride 102 mEq/L (98-107); Glucose 113 mg/dL (70-105); Magnesium 1.8 mg/dL (1.6-2.6); Osmolality,Calculated 298 (280-300); Phosphorous 2.7 mg/dL (2.7-4.5); Potassium 3.5 mEq/L (3.5-5.1); Sodium 140 mEq/L (136-145); eGFR For African Americans > 60 (> 60); eGFR For Non-African Americans 50 (> 60)
[2020-10-21] MEDS: Ipratropium/Albuterol Neb 3 ML IH SCH ×3 (03:27→15:33)
[2020-10-21] MEDS: cloNIDine HCL 0.1 MG TABLET PO SCH ×2 (09:28→20:56)
[2020-10-21] MEDS: Aspirin 81 MG TAB.CHEW PO SCH (09:28)
[2020-10-21] MEDS: allopurinoL 100 MG TABLET PO SCH (09:28)
[2020-10-21] MEDS: Furosemide 40 MG TABLET PO SCH ×2 (09:28→17:05)
[2020-10-21] MEDS: carvediloL 25 MG TABLET PO SCH ×2 (09:28→17:05)
[2020-10-21] MEDS: lisinopriL 20 MG TABLET PO SCH (09:28)
[2020-10-21] MEDS: Budesonide/Formoterol 160/4.5 1 PUFF INH IH SCH (11:04)
[2020-10-21] MEDS: Heparin 25,000UNIT/250ML 1/2NS 25,000 UNIT/250 ML IV.SOLN IVC SCH (16:55)
[2020-10-21 19:12] VITALS: BP 121/78
== END 2020-10-21 21:09 | disposition short-term general hospital (02) | DRG 286 ==
LOC: 2ANU 15:37 → EMEROOARM 15:37 → SUATTDRO 18:40 → 2ANU 20:37
PROVIDERS: ADMIT Internal Medicine; ATTEND Internal Medicine

== ENCOUNTER 2020-11-21 17:44 | Inpatient (IN) ==
[2020-11-21 18:57] LABS: INR 4.2
[2020-11-21 18:59] LABS: Activated Partial Thrombo Time 31.6 Seconds (26.0-36.0)
[2020-11-21 19:13] LABS: Albumin 3.4 g/dL (3.5-5.7); Albumin/Globulin Ratio 1.3 (1.1-2.2); Bilirubin,Direct 1.1 mg/dL (0.0-0.2); Bilirubin,Total 2.1 mg/dL (0.3-1.0); Calcium 8.9 mg/dL (8.6-10.3); Globulin 2.7 g/dL (2.4-3.5); Potassium 5.3 mEq/L (3.5-5.1); Total Protein 6.1 g/dL (6.4-8.9)
[2020-11-21] MEDS ORDERED: DilTIAZem 50 MG/50 ML IV.SOLN IVC SCH (19:15)
[2020-11-21 19:22] LABS: Troponin I 0.04 ng/mL (< 0.04)
[2020-11-21 19:23] LABS: Basophils % 0.1 %; Hematocrit 33.2 % (37.5-50.1); Hemoglobin 10.2 g/dL (12.9-16.9); Immature Granulocytes % 0.7 % (0-4); Lymphocytes # 0.5 K/mcL (0.6-4.6); Lymphocytes % 2.3 %; Mean Corpuscular HGB Conc 30.7 g/dL (31.6-35.5); Mean Corpuscular Hemoglobin 31.6 pg (28.0-33.3); Mean Corpuscular Volume 102.8 fL (83.0-100.0); Mean Platelet Volume 11.3 fL (9.4-12.4); Monocytes # 1.1 K/mcL (0.0-1.3); Monocytes % 5.3 %; Neutrophils # 18.2 K/mcL (1.6-8.9); Nucleated Red Blood Cells 0.2 /100 WBC (0); Platelet Count 263 K/mcL (140-400); Red Blood Count 3.23 M/mcL (4.19-5.50); Red Cell Distribution Width 19.3 % (11.5-14.5); Segmented Neutrophils % 91.6 %; White Blood Count 19.9 K/mcL (4.3-11.1)
[2020-11-21] MEDS ORDERED: Cefepime HCl 1,000 MG in 0.9 % Sodium Chloride Mini Bag 100 ML IVPB STA (19:34)
[2020-11-21] MEDS ORDERED: Vancomycin 1,500 MG/265 ML IV.SOLN IVPB ONE (19:34)
[2020-11-21] MEDS ORDERED: *HR* Norepinephrine 4 MG/4 ML VIAL IVC ONE (20:06)
[2020-11-21] MEDS ORDERED: 0.9 % Sodium Chloride 250 ML ONE (20:06)
[2020-11-21] MEDS ORDERED: Dexmedetomidine HCl 400 MCG/100 ML MLS IVC ONE (20:41)
[2020-11-21] MEDS ORDERED: 0.9 % Sodium Chloride 1,000 ML ONE (20:42)
[2020-11-21] MEDS: Dexmedetomidine HCl 400 MCG/100 ML MLS IVC SCH (20:45)
[2020-11-21] MEDS ORDERED: *HR* FentaNYL (PF) 1,000 MCG/20 ML VIAL ONE (20:47)
[2020-11-21] MEDS: FentaNYL (PF) 1,000 MCG/100 ML IV.SOLN IVC SCH (20:52)
[2020-11-21 21:08] LABS: ABG Base Excess -3 mEq/L (-2 to 3); ABG HCO3 23 mEq/L (21-27); ABG Oxygen Saturation 100 % (95-98); ABG PCO2 43 mmHg (35-45); ABG PH 7.33 pH Units (7.32-7.45); ABG PO2 235 mmHg (85-104); ABG TCO2 24 mEq/L (20-26); Blood Gas Modality ASSIST CONTROL; Blood Gas VT 500 cc
[2020-11-21 21:46] LABS: Bacteria,Urine Few per hpf (None-Few); Bilirubin,Urine Negative (Negative); Blood,Urine Trace (Negative); Clarity,Urine Turbid (Clear); Color,Urine Yellow (Yellow); Glucose,Urine (UA) Normal (Normal); Hyaline Casts,Urine Moderate per lpf (None Seen); Ketones,Urine Negative (Negative); Leukocyte Esterase,Urine Negative (Negative); Mucus,Urine Few per lpf (None-Few); Nitrite,Urine Negative (Negative); Protein,Urine 50 mg/dL (Neg-Trace); Specific Gravity,Urine 1.022 (1.010-1.025); Squamous Epithelial Cell,Urine Few per hpf (None-Few)
[2020-11-21] MEDS ORDERED: Amiodarone Premix 360 MG/200 ML BAG IVC ONE (22:54)
[2020-11-21] MEDS ORDERED: Naloxone 0.4 MG/ML INJ IVP PRN (23:48)
[2020-11-22] MEDS ORDERED: Artificial Tears SOLN 15 ML BOTTLE BOTH EYES PRN (00:12)
[2020-11-22] MEDS: Norepinephrine 4 MG/254 ML IV.SOLN IVC SCH ×2 (00:49→19:47)
[2020-11-22] MEDS: Chlorhexidine Rinse 15 ML MOUTHWASH MM SCH ×3 (00:50→19:47)
[2020-11-22] MEDS ORDERED: Albumin 25% 25gram/100mL 25 GM/100 ML IV.SOLN IVPB ONE (00:53)
[2020-11-22] MEDS ORDERED: Furosemide 20 MG/2 ML VIAL IVP ONE (00:54)
[2020-11-22] MEDS ORDERED: Perflutren Lipid Microsphere 1.3 ML in 0.9 % Sodium Chloride 8.7 ML IVP PRN (01:01)
[2020-11-22 02:34] LABS: ABG Base Excess -2 mEq/L (-2 to 3); ABG HCO3 25 mEq/L (21-27); ABG Oxygen Saturation 98 % (95-98); ABG PCO2 49 mmHg (35-45); ABG PH 7.31 pH Units (7.32-7.45); ABG PO2 111 mmHg (85-104); ABG TCO2 26 mEq/L (20-26); Blood Gas Modality ASSIST CONTROL; Blood Gas VT 500 cc
[2020-11-22 02:49] LABS: Basophils % 0.1 %; Hematocrit 29.2 % (37.5-50.1); Immature Granulocytes % 0.4 % (0-4); Lymphocytes # 0.5 K/mcL (0.6-4.6); Lymphocytes % 4.1 %; Mean Corpuscular HGB Conc 30.8 g/dL (31.6-35.5); Mean Corpuscular Volume 103.9 fL (83.0-100.0); Mean Platelet Volume 11.2 fL (9.4-12.4); Monocytes # 0.5 K/mcL (0.0-1.3); Monocytes % 4.5 %; Platelet Count 200 K/mcL (140-400); Red Blood Count 2.81 M/mcL (4.19-5.50); Red Cell Distribution Width 19.1 % (11.5-14.5); Segmented Neutrophils % 90.9 %; White Blood Count 12.1 K/mcL (4.3-11.1)
[2020-11-22 02:52] LABS: INR 3.7; Prothrombin Time 41.6 Seconds (9.4-12.1)
[2020-11-22 03:07] LABS: Albumin 3.1 g/dL (3.5-5.7); Albumin/Globulin Ratio 1.6 (1.1-2.2); Bilirubin,Total 1.1 mg/dL (0.3-1.0); Calcium 8.5 mg/dL (8.6-10.3); Magnesium 2.1 mg/dL (1.6-2.6); Phosphorous 4.1 mg/dL (2.7-4.5); Potassium 4.3 mEq/L (3.5-5.1); Total Protein 5.1 g/dL (6.4-8.9); Troponin I 0.05 ng/mL (< 0.04)
[2020-11-22 03:20] LABS: Thyroid Stimulating Hormone 1.436 mcIU/mL (0.340-5.600)
[2020-11-22] MEDS: Levalbuterol Neb 1.25 MG/3 ML IH SCH ×4 (03:29→21:32)
[2020-11-22] MEDS: FentaNYL (PF) 1,000 MCG/100 ML IV.SOLN IVC SCH (04:42)
[2020-11-22] MEDS: Artificial Tears SOLN 15 ML BOTTLE BOTH EYES SCH ×5 (05:45→23:59)
[2020-11-22] MEDS: Amiodarone Premix 360 MG/200 ML BAG IVC SCH ×2 (06:36→18:43)
[2020-11-22] MEDS: Dexmedetomidine HCl 400 MCG/100 ML MLS IVC SCH ×2 (07:02→20:33)
[2020-11-22] MEDS ORDERED: Vancomycin 500 MG in 0.9 % Sodium Chloride Mini Bag 100 ML IVPB ONE (09:21)
[2020-11-22] MEDS: Pantoprazole 40 MG VIAL IVP SCH (10:25)
[2020-11-22] MEDS: methylPREDNISolone 125 MG/2 ML VIAL IVP SCH ×3 (10:25→23:51)
[2020-11-22] MEDS: Aspirin 81 MG TAB.CHEW PO SCH (10:26)
[2020-11-22] MEDS ORDERED: Heparin 25,000UNIT/250ML 1/2NS 25,000 UNIT/250 ML IV.SOLN IVC SCH ×3 (10:30→18:15)
[2020-11-22 11:36] LABS: Hemoglobin 10.1 g/dL (12.9-16.9); Mean Corpuscular HGB Conc 29.7 g/dL (31.6-35.5); Mean Corpuscular Hemoglobin 31.7 pg (28.0-33.3); Mean Corpuscular Volume 106.6 fL (83.0-100.0); Platelet Count 222 K/mcL (140-400); Red Blood Count 3.19 M/mcL (4.19-5.50); Red Cell Distribution Width 19.1 % (11.5-14.5)
[2020-11-22 11:54] LABS: Heparin anti-factor XA UFH > 2.00 IU/mL (0.30-0.70)
[2020-11-22 12:31] LABS: Activated Partial Thrombo Time 34.5 Seconds (26.0-36.0)
[2020-11-22] MEDS ORDERED: Cefepime HCl 1,000 MG in Water for inj. (sterile) 10 ML IVP SCH (18:00)
[2020-11-22] MEDS ORDERED: *HR* Heparin 5,000 UNIT/ML VIAL IVP PRN ×2 (18:15)
[2020-11-22 18:45] LABS: Hematocrit 34.9 % (37.5-50.1); Hemoglobin 10.5 g/dL (12.9-16.9); Mean Corpuscular HGB Conc 30.1 g/dL (31.6-35.5); Mean Corpuscular Hemoglobin 31.7 pg (28.0-33.3); Mean Corpuscular Volume 105.4 fL (83.0-100.0); Mean Platelet Volume 11.2 fL (9.4-12.4); Platelet Count 232 K/mcL (140-400); Red Blood Count 3.31 M/mcL (4.19-5.50); Red Cell Distribution Width 19.2 % (11.5-14.5); White Blood Count 13.8 K/mcL (4.3-11.1)
[2020-11-22 18:54] LABS: INR 2.7; Prothrombin Time 30.8 Seconds (9.4-12.1)
[2020-11-22 18:59] LABS: Heparin anti-factor XA UFH > 2.00 IU/mL (0.30-0.70)
[2020-11-22 19:12] LABS: Activated Partial Thrombo Time 52.1 Seconds (26.0-36.0)
[2020-11-22] MEDS: Heparin 25,000UNIT/250ML 1/2NS 25,000 UNIT/250 ML IV.SOLN IVC SCH (19:48)
[2020-11-23 02:04] LABS: Basophils % 0.1 %; Hematocrit 33.5 % (37.5-50.1); Hemoglobin 10.4 g/dL (12.9-16.9); Immature Granulocytes % 0.6 % (0-4); Lymphocytes # 0.2 K/mcL (0.6-4.6); Lymphocytes % 1.9 %; Mean Corpuscular Hemoglobin 32.1 pg (28.0-33.3); Mean Corpuscular Volume 103.4 fL (83.0-100.0); Mean Platelet Volume 11.2 fL (9.4-12.4); Monocytes # 0.2 K/mcL (0.0-1.3); Monocytes % 1.6 %; Neutrophils # 11.1 K/mcL (1.6-8.9); Nucleated Red Blood Cells 0.2 /100 WBC (0); Platelet Count 230 K/mcL (140-400); Red Blood Count 3.24 M/mcL (4.19-5.50); Segmented Neutrophils % 95.8 %; White Blood Count 11.6 K/mcL (4.3-11.1)
[2020-11-23 02:32] LABS: Calcium 8.4 mg/dL (8.6-10.3); Magnesium 2.1 mg/dL (1.6-2.6); Potassium 4.6 mEq/L (3.5-5.1)
[2020-11-23] MEDS: Artificial Tears SOLN 15 ML BOTTLE BOTH EYES SCH ×4 (03:11→14:54)
[2020-11-23] MEDS: Levalbuterol Neb 1.25 MG/3 ML IH SCH ×4 (03:11→21:43)
[2020-11-23] MEDS: Amiodarone Premix 360 MG/200 ML BAG IVC SCH ×2 (05:58→15:28)
[2020-11-23] MEDS: Chlorhexidine Rinse 15 ML MOUTHWASH MM SCH (08:16)
[2020-11-23] MEDS: methylPREDNISolone 125 MG/2 ML VIAL IVP SCH ×3 (08:21→23:53)
[2020-11-23] MEDS: Aspirin 81 MG TAB.CHEW PO SCH (08:22)
[2020-11-23] MEDS: Pantoprazole 40 MG VIAL IVP SCH (08:22)
[2020-11-23] MEDS ORDERED: *HR* Rocuronium Bromide 100 MG/10 ML VIAL IVP ONE (10:26)
[2020-11-23] MEDS: Cefepime HCl 1,000 MG in Water for inj. (sterile) 10 ML IVP SCH ×2 (15:27→23:53)
[2020-11-23] MEDS: Heparin 25,000UNIT/250ML 1/2NS 25,000 UNIT/250 ML IV.SOLN IVC SCH (15:28)
[2020-11-23] MEDS: Norepinephrine 4 MG/254 ML IV.SOLN IVC SCH (20:51)
[2020-11-24] MEDS: Levalbuterol Neb 1.25 MG/3 ML IH SCH ×4 (03:34→21:46)
[2020-11-24] MEDS: Amiodarone Premix 360 MG/200 ML BAG IVC SCH (04:09)
[2020-11-24] MEDS: Dexmedetomidine HCl 400 MCG/100 ML MLS IVC SCH ×2 (05:23→10:30)
[2020-11-24 06:28] LABS: Basophils % 0.1 %; Hemoglobin 10.7 g/dL (12.9-16.9); Mean Platelet Volume 11.3 fL (9.4-12.4); Platelet Count 309 K/mcL (140-400)
[2020-11-24 06:29] LABS: Hematocrit 34.6 % (37.5-50.1); Immature Granulocytes % 1.8 % (0-4); Lymphocytes # 0.3 K/mcL (0.6-4.6); Lymphocytes % 0.9 %; Mean Corpuscular HGB Conc 30.9 g/dL (31.6-35.5); Mean Corpuscular Hemoglobin 31.5 pg (28.0-33.3); Mean Corpuscular Volume 101.8 fL (83.0-100.0); Monocytes # 0.7 K/mcL (0.0-1.3); Monocytes % 2.5 %; Neutrophils # 26.1 K/mcL (1.6-8.9); Nucleated Red Blood Cells 0.4 /100 WBC (0); Segmented Neutrophils % 94.7 %; White Blood Count 27.6 K/mcL (4.3-11.1)
[2020-11-24 06:53] LABS: Albumin 3.2 g/dL (3.5-5.7); Albumin/Globulin Ratio 1.2 (1.1-2.2); Bilirubin,Total 0.8 mg/dL (0.3-1.0); Calcium 8.9 mg/dL (8.6-10.3); Globulin 2.6 g/dL (2.4-3.5); Potassium 4.7 mEq/L (3.5-5.1); Total Protein 5.8 g/dL (6.4-8.9)
[2020-11-24] MEDS: Cefepime HCl 1,000 MG in Water for inj. (sterile) 10 ML IVP SCH ×2 (07:18→18:01)
[2020-11-24] MEDS: Aspirin 81 MG TAB.CHEW PO SCH (07:19)
[2020-11-24] MEDS: methylPREDNISolone 125 MG/2 ML VIAL IVP SCH (07:19)
[2020-11-24] MEDS: Pantoprazole 40 MG VIAL IVP SCH (07:20)
[2020-11-24 07:28] LABS: Platelet Estimate Normal (Normal)
[2020-11-24] MEDS ORDERED: Albuterol 2.5 MG/3 ML NEBULIZER IH PRN (10:12)
[2020-11-24] MEDS ORDERED: Perflutren Lipid Microsphere 1.3 ML in 0.9 % Sodium Chloride 8.7 ML IVP PRN (10:12)
[2020-11-24] MEDS ORDERED: *HR* Heparin 5,000 UNIT/ML VIAL IVP PRN ×2 (10:12)
[2020-11-24] MEDS ORDERED: Amiodarone Premix 360 MG/200 ML BAG IVC SCH (10:12)
[2020-11-24] MEDS ORDERED: Naloxone 0.4 MG/ML INJ IVP PRN (10:12)
[2020-11-24] MEDS: Heparin 25,000UNIT/250ML 1/2NS 25,000 UNIT/250 ML IV.SOLN IVC SCH ×2 (10:29→13:52)
[2020-11-24] MEDS: *HR* Amiodarone 200 MG TABLET PO SCH ×2 (12:34→20:10)
[2020-11-24 12:56] LABS: Bacteria,Urine Few per hpf (None-Few); Bilirubin,Urine Negative (Negative); Blood,Urine Large (Negative); Clarity,Urine Turbid (Clear); Color,Urine Yellow (Yellow); Glucose,Urine (UA) Normal (Normal); Granular Casts,Urine Few per lpf (None Seen); Ketones,Urine Negative (Negative); Leukocyte Esterase,Urine Negative (Negative); Mucus,Urine Few per lpf (None-Few); Nitrite,Urine Negative (Negative); Protein,Urine 70 mg/dL (Neg-Trace); RBC,Urine TNTC per hpf (0-3); Specific Gravity,Urine 1.025 (1.010-1.025); Squamous Epithelial Cell,Urine Few per hpf (None-Few); Urobilinogen,Urine Normal (Normal); WBC,Urine 50-100 per hpf (0-3)
[2020-11-24] MEDS ORDERED: Cefepime HCl 1,000 MG in Water for inj. (sterile) 10 ML IVP SCH (16:00)
[2020-11-24] MEDS ORDERED: Menthol 9.1 MG LOZENGE PO PRN (16:16)
[2020-11-24] MEDS: Apixaban 5 MG TABLET PO SCH (20:10)
[2020-11-25] MEDS: Levalbuterol Neb 1.25 MG/3 ML IH SCH ×4 (04:02→21:09)
[2020-11-25] MEDS: Dexmedetomidine HCl 400 MCG/100 ML MLS IVC SCH (05:04)
[2020-11-25] MEDS: Cefepime HCl 1,000 MG in Water for inj. (sterile) 10 ML IVP SCH ×2 (06:09→16:40)
[2020-11-25 07:10] LABS: Basophils % 0.1 %; Hematocrit 31.1 % (37.5-50.1); Hemoglobin 9.7 g/dL (12.9-16.9); Immature Granulocytes % 1.2 % (0-4); Lymphocytes # 0.3 K/mcL (0.6-4.6); Lymphocytes % 1.2 %; Mean Corpuscular HGB Conc 31.2 g/dL (31.6-35.5); Mean Corpuscular Hemoglobin 31.5 pg (28.0-33.3); Mean Platelet Volume 11.5 fL (9.4-12.4); Monocytes # 1.3 K/mcL (0.0-1.3); Monocytes % 5.9 %; Neutrophils # 20.4 K/mcL (1.6-8.9); Nucleated Red Blood Cells 0.8 /100 WBC (0); Platelet Count 244 K/mcL (140-400); Red Blood Count 3.08 M/mcL (4.19-5.50); Red Cell Distribution Width 19.1 % (11.5-14.5); Segmented Neutrophils % 91.6 %; White Blood Count 22.3 K/mcL (4.3-11.1)
[2020-11-25 07:29] LABS: Albumin/Globulin Ratio 1.3 (1.1-2.2); Bilirubin,Total 0.7 mg/dL (0.3-1.0); Calcium 8.7 mg/dL (8.6-10.3); Globulin 2.3 g/dL (2.4-3.5); Total Protein 5.3 g/dL (6.4-8.9)
[2020-11-25] MEDS: allopurinoL 100 MG TABLET PO SCH (08:06)
[2020-11-25] MEDS: predniSONE 20 MG TABLET PO SCH (08:06)
[2020-11-25] MEDS: *HR* Amiodarone 200 MG TABLET PO SCH ×2 (08:06→20:59)
[2020-11-25] MEDS: Apixaban 5 MG TABLET PO SCH ×2 (08:06→20:59)
[2020-11-25] MEDS ORDERED: Aspirin 81 MG TAB.CHEW PO SCH (09:00)
[2020-11-25] MEDS ORDERED: Pantoprazole 40 MG VIAL IVP SCH (09:00)
[2020-11-25] MEDS: Budesonide/Formoterol 80/4.5 1 PUFF INH IH SCH ×2 (10:33→21:09)
[2020-11-25] MEDS ORDERED: Benzonatate 100 MG CAPSULE PO PRN (15:22)
[2020-11-25] MEDS: Furosemide 40 MG/4 ML VIAL IVP SCH (16:40)
[2020-11-26] MEDS: Levalbuterol Neb 1.25 MG/3 ML IH SCH ×4 (04:21→22:21)
[2020-11-26 05:22] LABS: Basophils % 0.2 %; Hematocrit 31.4 % (37.5-50.1); Hemoglobin 9.7 g/dL (12.9-16.9); Lymphocytes # 0.4 K/mcL (0.6-4.6); Lymphocytes % 1.9 %; Mean Corpuscular HGB Conc 30.9 g/dL (31.6-35.5); Mean Corpuscular Hemoglobin 31.5 pg (28.0-33.3); Mean Corpuscular Volume 101.9 fL (83.0-100.0); Mean Platelet Volume 11.3 fL (9.4-12.4); Monocytes # 1.2 K/mcL (0.0-1.3); Monocytes % 6.6 %; Neutrophils # 16.8 K/mcL (1.6-8.9); Nucleated Red Blood Cells 0.4 /100 WBC (0); Platelet Count 229 K/mcL (140-400); Red Blood Count 3.08 M/mcL (4.19-5.50); Red Cell Distribution Width 19.3 % (11.5-14.5); Segmented Neutrophils % 90.3 %; White Blood Count 18.6 K/mcL (4.3-11.1)
[2020-11-26 05:36] LABS: Albumin 3.3 g/dL (3.5-5.7); Albumin/Globulin Ratio 1.3 (1.1-2.2); Bilirubin,Total 0.8 mg/dL (0.3-1.0); Calcium 9.1 mg/dL (8.6-10.3); Globulin 2.5 g/dL (2.4-3.5); Potassium 4.9 mEq/L (3.5-5.1); Total Protein 5.8 g/dL (6.4-8.9)
[2020-11-26] MEDS: Cefepime HCl 1,000 MG in Water for inj. (sterile) 10 ML IVP SCH ×2 (05:39→17:12)
[2020-11-26 05:41] LABS: % Iron Saturation 19 % (20-55); Iron 51 mcg/dL (65-175); Transferrin 190 mg/dL (203-362)
[2020-11-26 05:55] LABS: Ferritin 337 ng/mL (20-250)
[2020-11-26 06:00] LABS: Folate 7.4 ng/mL (3.0-16.0)
[2020-11-26 06:03] LABS: Vitamin B12 > 1500 pg/mL (250-1100)
[2020-11-26] MEDS: Albumin 25% 25gram/100mL 25 GM/100 ML IV.SOLN IVPB SCH (07:53)
[2020-11-26] MEDS: Furosemide 40 MG/4 ML VIAL IVP SCH (07:53)
[2020-11-26] MEDS: Apixaban 5 MG TABLET PO SCH ×2 (07:53→22:00)
[2020-11-26] MEDS: allopurinoL 100 MG TABLET PO SCH (07:53)
[2020-11-26] MEDS: *HR* Amiodarone 200 MG TABLET PO SCH ×2 (07:53→21:59)
[2020-11-26] MEDS: predniSONE 20 MG TABLET PO SCH (07:53)
[2020-11-26] MEDS: Sodium Ferric Gluconat/Sucrose 125 MG in 0.9 % Sodium Chloride 100 ML IVPB SCH (09:00)
[2020-11-26] MEDS ORDERED: Furosemide 40 MG/4 ML VIAL IVP SCH (09:11)
[2020-11-26] MEDS: Budesonide/Formoterol 80/4.5 1 PUFF INH IH SCH ×2 (10:15→22:21)
[2020-11-26] MEDS ORDERED: Albumin 25% 25gram/100mL 25 GM/100 ML IV.SOLN IVPB ONE (17:00)
[2020-11-26] MEDS ORDERED: Furosemide 40 MG/4 ML VIAL IVP ONE (19:00)
[2020-11-27] MEDS: Levalbuterol Neb 1.25 MG/3 ML IH SCH ×4 (04:10→22:26)
[2020-11-27] MEDS ORDERED: *HR* LORazepam 2 MG/ML VIAL IVP ONE (05:28)
[2020-11-27] MEDS: Cefepime HCl 1,000 MG in Water for inj. (sterile) 10 ML IVP SCH ×2 (05:44→17:53)
[2020-11-27 05:55] LABS: Basophils % 0.2 %; Hematocrit 27.8 % (37.5-50.1); Hemoglobin 8.6 g/dL (12.9-16.9); Immature Granulocytes % 1.3 % (0-4); Lymphocytes # 0.4 K/mcL (0.6-4.6); Mean Corpuscular HGB Conc 30.9 g/dL (31.6-35.5); Mean Corpuscular Volume 103.3 fL (83.0-100.0); Mean Platelet Volume 11.5 fL (9.4-12.4); Monocytes # 1.4 K/mcL (0.0-1.3); Monocytes % 7.9 %; Neutrophils # 15.6 K/mcL (1.6-8.9); Nucleated Red Blood Cells 0.3 /100 WBC (0); Platelet Count 183 K/mcL (140-400); Red Blood Count 2.69 M/mcL (4.19-5.50); Red Cell Distribution Width 19.2 % (11.5-14.5); Segmented Neutrophils % 88.6 %; White Blood Count 17.5 K/mcL (4.3-11.1)
[2020-11-27 06:14] LABS: Albumin 3.8 g/dL (3.5-5.7); Albumin/Globulin Ratio 1.7 (1.1-2.2); Bilirubin,Total 0.9 mg/dL (0.3-1.0); Calcium 9.6 mg/dL (8.6-10.3); Globulin 2.2 g/dL (2.4-3.5)
[2020-11-27] MEDS: Apixaban 5 MG TABLET PO SCH ×2 (08:00→21:19)
[2020-11-27] MEDS: allopurinoL 100 MG TABLET PO SCH (08:00)
[2020-11-27] MEDS: *HR* Amiodarone 200 MG TABLET PO SCH ×2 (08:01→21:19)
[2020-11-27] MEDS: Metoprolol XL (24 HR) Succ 50 MG TAB.ER.24H PO SCH (08:01)
[2020-11-27] MEDS: Albumin 25% 25gram/100mL 25 GM/100 ML IV.SOLN IVPB SCH ×2 (08:01→17:14)
[2020-11-27] MEDS: Sodium Ferric Gluconat/Sucrose 125 MG in 0.9 % Sodium Chloride 100 ML IVPB SCH (09:33)
[2020-11-27] MEDS: Budesonide/Formoterol 80/4.5 1 PUFF INH IH SCH ×2 (10:10→22:26)
[2020-11-27] MEDS ORDERED: Furosemide 40 MG/4 ML VIAL IVP SCH ×2 (11:00→11:30)
[2020-11-27] MEDS ORDERED: *HR* LORazepam 0.5 MG TABLET PO PRN (17:34)
[2020-11-27] MEDS: Furosemide 40 MG/4 ML VIAL IVP SCH (19:38)
[2020-11-28 02:52] LABS: Basophils % 0.1 %; Hematocrit 24.5 % (37.5-50.1); Hemoglobin 7.6 g/dL (12.9-16.9); Immature Granulocytes % 1.6 % (0-4); Lymphocytes # 0.3 K/mcL (0.6-4.6); Lymphocytes % 1.8 %; Mean Corpuscular Hemoglobin 31.7 pg (28.0-33.3); Mean Corpuscular Volume 102.1 fL (83.0-100.0); Mean Platelet Volume 12.2 fL (9.4-12.4); Monocytes # 1.2 K/mcL (0.0-1.3); Monocytes % 7.1 %; Neutrophils # 14.7 K/mcL (1.6-8.9); Nucleated Red Blood Cells 0.1 /100 WBC (0); Platelet Count 163 K/mcL (140-400); Red Cell Distribution Width 19.4 % (11.5-14.5); Segmented Neutrophils % 89.4 %; White Blood Count 16.4 K/mcL (4.3-11.1)
[2020-11-28 03:09] LABS: Albumin 3.8 g/dL (3.5-5.7); Albumin/Globulin Ratio 1.7 (1.1-2.2); Bilirubin,Total 1.4 mg/dL (0.3-1.0); Calcium 9.5 mg/dL (8.6-10.3); Globulin 2.2 g/dL (2.4-3.5); Potassium 5.6 mEq/L (3.5-5.1)
[2020-11-28] MEDS: Levalbuterol Neb 1.25 MG/3 ML IH SCH ×4 (03:42→21:43)
[2020-11-28] MEDS ORDERED: *HR* Dextrose 50 % in Water (Vial) 50 ML VIAL IVP ONE (04:59)
[2020-11-28] MEDS ORDERED: Insulin Human Regular 10 UNIT in 0.9 % Sodium Chloride 10 ML IV ONE (04:59)
[2020-11-28] MEDS ORDERED: *HR* Metoprolol 5 MG/5 ML VIAL IVP ONE ×2 (05:02→23:00)
[2020-11-28] MEDS ORDERED: Levalbuterol Neb 1.25 MG/3 ML IH ONE (05:41)
[2020-11-28] MEDS: Cefepime HCl 1,000 MG in Water for inj. (sterile) 10 ML IVP SCH ×2 (06:03→18:31)
[2020-11-28] MEDS: Calcium Gluconate 1gm/50mL 1 GM/50 ML BAG IVPB SCH ×2 (06:09→08:21)
[2020-11-28] MEDS: Metoprolol XL (24 HR) Succ 50 MG TAB.ER.24H PO SCH ×2 (08:20→20:12)
[2020-11-28] MEDS: *HR* Amiodarone 200 MG TABLET PO SCH ×2 (08:20→20:12)
[2020-11-28] MEDS: allopurinoL 100 MG TABLET PO SCH (08:20)
[2020-11-28] MEDS: Budesonide/Formoterol 80/4.5 1 PUFF INH IH SCH ×2 (08:39→21:43)
[2020-11-28] MEDS: Albumin 25% 25gram/100mL 25 GM/100 ML IV.SOLN IVPB SCH ×2 (10:00→18:32)
[2020-11-28] MEDS ORDERED: SODIUM ZIRCONIUM CYCLOSILICATE 5 GM POWD.PACK PO ONE (11:00)
[2020-11-28] MEDS: Furosemide 40 MG/4 ML VIAL IVP SCH (13:21)
[2020-11-28] MEDS: Sodium Ferric Gluconat/Sucrose 125 MG in 0.9 % Sodium Chloride 100 ML IVPB SCH (16:32)
[2020-11-28] MEDS: Furosemide 80 MG in 0.9 % Sodium Chloride 50 ML IV SCH (20:12)
[2020-11-28] MEDS ORDERED: Morphine Sulfate 2 MG/ML SYRINGE IVP ONE (22:59)
[2020-11-29] MEDS: Levalbuterol Neb 1.25 MG/3 ML IH SCH ×3 (03:35→15:45)
[2020-11-29] MEDS ORDERED: *HR* LORazepam 2 MG/ML VIAL IVP ONE (04:35)
[2020-11-29] MEDS: Cefepime HCl 1,000 MG in Water for inj. (sterile) 10 ML IVP SCH (05:39)
[2020-11-29] MEDS: Albumin 25% 25gram/100mL 25 GM/100 ML IV.SOLN IVPB SCH ×2 (05:40→15:55)
[2020-11-29] MEDS ORDERED: Aspirin 81 MG TAB.CHEW PO SCH (09:00)
[2020-11-29] MEDS: Sodium Ferric Gluconat/Sucrose 125 MG in 0.9 % Sodium Chloride 100 ML IVPB SCH (09:48)
[2020-11-29] MEDS ORDERED: *HR* Metoprolol 5 MG/5 ML VIAL IVP PRN (10:30)
[2020-11-29] MEDS ORDERED: *HR* LORazepam 2 MG/ML VIAL IVP PRN ×2 (10:32→15:21)
[2020-11-29] MEDS: allopurinoL 100 MG TABLET PO SCH (10:36)
[2020-11-29] MEDS: Metoprolol XL (24 HR) Succ 50 MG TAB.ER.24H PO SCH (10:36)
[2020-11-29] MEDS: *HR* Amiodarone 200 MG TABLET PO SCH (10:36)
[2020-11-29] MEDS: Furosemide 80 MG in 0.9 % Sodium Chloride 50 ML IV SCH (10:54)
[2020-11-29 11:05] LABS: Basophils % 0.1 %; Hematocrit 24.2 % (37.5-50.1); Hemoglobin 7.5 g/dL (12.9-16.9); Immature Granulocytes % 1.7 % (0-4); Lymphocytes # 0.5 K/mcL (0.6-4.6); Lymphocytes % 2.4 %; Mean Corpuscular Hemoglobin 32.5 pg (28.0-33.3); Mean Corpuscular Volume 104.8 fL (83.0-100.0); Monocytes # 1.2 K/mcL (0.0-1.3); Monocytes % 6.1 %; Nucleated Red Blood Cells 0.3 /100 WBC (0); Platelet Count 161 K/mcL (140-400); Red Blood Count 2.31 M/mcL (4.19-5.50); Red Cell Distribution Width 19.5 % (11.5-14.5); Segmented Neutrophils % 89.7 %
[2020-11-29 11:10] VITALS: BP 110/78
[2020-11-29] MEDS: Budesonide/Formoterol 80/4.5 1 PUFF INH IH SCH (11:11)
[2020-11-29 11:48] LABS: Alanine Aminotransferase 325 Units/L (7-52); Albumin 4.1 g/dL (3.5-5.7); Albumin/Globulin Ratio 2.2 (1.1-2.2); Alkaline Phosphatase 93 Units/L (34-104); Aspartate Amino Transferase 247 Units/L (13-39); Bilirubin,Total 2.4 mg/dL (0.3-1.0); Blood Urea Nitrogen > 130 mg/dL (8-23); Calcium 9.7 mg/dL (8.6-10.3); Carbon Dioxide 20 mEq/L (23-29); Chloride 105 mEq/L (98-107); Globulin 1.9 g/dL (2.4-3.5); Glucose 90 mg/dL (70-105); Potassium 5.7 mEq/L (3.5-5.1); Sodium 142 mEq/L (136-145); eGFR For African Americans 19 (> 60); eGFR For Non-African Americans 15 (> 60)
[2020-11-29] MEDS ORDERED: SODIUM ZIRCONIUM CYCLOSILICATE 5 GM POWD.PACK PO ONE (12:41)
[2020-11-29] MEDS ORDERED: *HR* FentaNYL (PF) 100 MCG/2 ML VIAL IVP PRN (15:21)
[2020-11-30] MEDS ORDERED: Cefepime HCl 1,000 MG in Water for inj. (sterile) 10 ML IVP SCH (06:00)
== END 2020-11-29 16:30 | disposition expired | DRG 871 ==
LOC: EMEROOARM 17:44 → ICNU 23:12 → SUATTDRO 23:12 → ICNU 23:42 → 3ANU 11-24 16:52 → 2ANU 11-29 00:45
PROVIDERS: ADMIT Internal Medicine; ATTEND Internal Medicine